=== PATIENT | male | born 1955 | race Caucasian/White ===

== ENCOUNTER 2024-04-26 08:50 | Emergency (ER) | payer OTHER, SELFPAY ==
--- NOTE | ~2024-04-26 | XR_ITS ---
CLINICAL HISTORY: cough 2 view chest x-ray Comparison: None Findings: No focal consolidation. No pleural effusion or pneumothorax. Normal size cardiac silhouette. No acute fracture. IMPRESSION: 1. No acute findings. This document has been electronically signed by: Hilda Bautista MD on 04/26/2024 09:31:30
[2024-04-26 09:00] VITALS: BP 113/78; PULSE 98; RESP 18; TEMP 36.5; O2SAT 96; BMI 29.7
--- NOTE | 2024-04-26 09:00 | ED.GENADULT ---
HPI - General Adult General Chief complaint: General Medical Stated complaint: flu Time Seen by Provider: 04/26/24 12:15 Source: patient and family Mode of arrival: ambulatory Limitations: no limitations History of Present Illness ED Provider: DR. Mahmood HPI narrative: A 68-year-old male history of diabetes presented today for 1 week of generalized weakness, coughing, sore throat, patient was diagnosed on with influenza a positive, patient is complaining of nausea, and vomiting with abdominal discomfort, patient is also complaining of body aches. Related Data Allergies Allergy/AdvReac Type Severity Reaction Status Date / Time No Known Allergies Allergy Verified 04/26/24 09:03 Review of Systems Review of Systems: All other systems are reviewed and are negative Constitutional: Reports as per HPI and Reports no additional constitutional complaints Eyes: Reports as per HPI and Reports no additional eye complaints Reports system reviewed and no additional complaints, except as documented Cardiovascular: Reports as per HPI and Reports no additional cardiovascular complaints Respiratory: Reports as per HPI and Reports no additional respiratory complaints Gastrointestinal: Reports as per HPI and Reports no additional gastrointestinal complaints Genitourinary: Reports no additional female genitourinary complaints Musculoskeletal: Reports no additional musculoskeletal complaints Skin/Breast: Reports system reviewed and no additional complaints, except as docu Psychiatric: Reports no additional psychiatric complaints Endocrine: Reports no additional endocrine complaints Hematologic/Lymphatic: Reports no additional hematologic/lymphatic complaints Allergic/Immunologic: Reports no additional allergic/immunologic complaints Reports system reviewed and no additional complaints, except as documented and Reports Abnormal speech present PMFSH Social History Social History Advance Directives: No Advance Directives Information Provided: No Do you have a plan to hurt others: No Plan Physical Exam ED Vital Signs: Vital Signs - 24 hr 04/26/24 09:00 04/26/24 15:12 04/26/24 16:02 Temperature 97.7 F 98.4 F 98.4 F Pulse Rate 98 88 88 Respiratory Rate 18 16 16 Blood Pressure 113/78 111/65 111/65 Pulse Oximetry 96 96 96 Oxygen Delivery Method Room Air Room Air Room Air BMI result Body Mass Index 29.7 Vital signs have been reviewed and appear to be correct. Blood pressure elevated. Heart rate normal. Respiratory rate normal. Temperature normal. Oxygen saturation normal. Appearance: Alert. Oriented X3. No acute distress. Head: Normal external exam. Normocephalic. Atraumatic. No Rubio signs noted. No raccoon eyes noted Eyes: PERRLA. EOMI. Conjunctiva and sclera normal. Eyelids normal. ENT: TM's Normal. Pharynx normal. Uvula midline. dry mucous membranes. No trismus noted. No drooling noted. No muffled voice noted. Neck: Normal inspection. Neck supple. FROM. No adenopathy. Thyroid Normal. No meningeal signs. No neck mass noted. CVS: Normal heart rate and rhythm. Heart sound normal. No murmurs noted. Pulses normal throughout. Respiratory: No respiratory distress. Painless inspiration. Breath sounds normal. No wheezes/rales/rhonchi noted. Chest nontender. No accessory muscle usage noted or decreased air movement noted. Abdomen: Soft and nontender. Bowel sounds normal in all 4 quadrants. No distention noted. No organomegaly noted. No visible injury noted. Back: No CVA tenderness. Full range of motion noted. Skin: Skin warm and dry. Normal skin color. Normal skin turgor. No rashes/lesions/lacerations noted. Extremities: No lower extremity edema. Extremities exhibit normal range of motion. Extremities nontender. Neuro: Oriented X 3. Cranial nerve exam: II-XII are grossly intact No motor deficit. No sensory deficit. Reflexes normal. Course Course Course Narrative: RME performed by Germaine Hargrove PA-C. Patient is a 68 year old assigned male at presenting to the emergency department with difficulty swallowing secondary to pain and is influenza positive. Patient has nausea and vomiting. Detailed physical exam and review of systems are deferred to the outreach clinician. Labs, imaging, and swabs ordered. Patient placed back in the waiting room pending room availability and results. Medications Administered Discontinued Medications Generic Name Dose Route Start Last Admin Trade Name Freq PRN Reason Stop Dose Admin Al Hydroxide/Mg Hydroxide 30 ml 04/26/24 12:45 04/26/24 12:54 Magnesium Hydrox/Alum Hydrox 30 Ml Oral.Susp PO 04/26/24 12:46 30 ml ONCE ONE Administration Famotidine 20 mg 04/26/24 12:35 04/26/24 12:51 Famotidine/Pf 20 Mg/2 Ml Vial IVPUSH 04/26/24 12:36 20 mg ONCE ONE Administration Sodium Chloride 1,000 mls @ 999 mls/hr 04/26/24 12:34 04/26/24 13:50 Ns IV 04/26/24 13:34 Infused .Q1H1M ONE Infusion Ketorolac Tromethamine 15 mg 04/26/24 12:45 04/26/24 12:51 Ketorolac Tromethamine 15 Mg/Ml Vial IVPUSH 04/26/24 12:46 15 mg ONCE ONE Administration Ondansetron HCl 4 mg 04/26/24 12:35 04/26/24 12:51 Ondansetron Hcl 4 Mg/2 Ml Vial IVPUSH 04/26/24 12:36 4 mg ONCE ONE Administration Medical Decision Making Lab Data 04/26/24 09:11 04/26/24 09:11 Labs: Lab Results 04/26/24 04/26/24 Range/Units 09:11 12:56 WBC 7.1 (4.8-10.8) X10*3/uL RBC 5.93 H (4.60-5.80) X10*6/uL Hgb 17.7 (14.0-18.0) g/dl Hct 49.2 (42.0-52.0) % MCV 83.0 (80.0-98.0) fL MCH 29.8 (27.0-33.0) pg MCHC 36.0 (31.0-36.0) g/dl RDW 13.4 (11.0-16.0) % Plt Count 182 (160-400) X10*3/uL MPV 10.8 (9.4-12.4) fL Immature Gran % (Auto) 1.7 H (0.0-0.4) % Neut % (Auto) 75.5 H (45-73) % Lymph % (Auto) 11.8 L (20-40) % [place] % (Auto) 10.6 (2-11) % Eos % (Auto) 0.1 (0-4) % Baso % (Auto) 0.3 (0-2) % Lymph # (Auto) 0.8 L (1.2-4.9) X10*3/uL [place] # (Auto) 0.8 (0.1-1.2) X10*3/uL Eos # (Auto) 0.0 (0.0-0.4) X10*3/uL Baso # (Auto) 0.0 (0.0-0.2) X10*3/uL Abs Immat Gran (auto) 0.12 H (0.00-0.03) X10*3/uL Absolute Neuts (auto) 5.4 (2.0-8.3) x10*3/uL Absolute Nucleated RBC 0.000 (0.0-0.012) X10*3/uL Nucleated RBC % (auto) 0.0 (0.0-0.2) /100WBC Sodium 131 L (135-145) mmol/L Potassium 4.6 (3.3-5.1) mmol/L Chloride 95 L (96-108) mmol/L Carbon Dioxide 21 L (22-29) mmol/L Anion Gap 20 (12-20) BUN 18 H (9-16) mg/dL Creatinine 1.03 (0.5-1.4) mg/dL Estim Creat Clear Calc 72.9 Estimated GFR > 60 Random Glucose 336 H (60-115) mg/dL Calcium 9.4 (8.4-10.2) mg/dL Magnesium 2.1 (1.6-2.6) mg/dL Total Bilirubin 0.9 (0.0-1.0) mg/dL AST 172 H (5-37) U/L ALT 275 H (0-40) U/L Alkaline Phosphatase 168 H (39-117) U/L Total Protein 8.2 H (6.5-8.0) g/dL Albumin 3.9 (3.5-5.0) g/dL Influenza Type A (PCR) NEGATIVE (Negative) Influenza Type B (PCR) NEGATIVE (Negative) RSV RNA Qual (PCR) NEGATIVE (Negative) SARS-CoV-2 RNA (RT-PCR) NEGATIVE (Negative) S. pyogenes GrpA JOANIE Negative (Negative) Discharge Plan Discharge Clinical Impression: Dehydration, Acute viral syndrome Patient Disposition: Home, Self-Care Instructions: Dehydration (ED), Viral Syndrome (ED) Additional Instructions: Drink plenty of fluids. Take [id number] ibuprofen 200 mg tablet every 6 hours if needed for body ache. Wear face mask at all times, frequent hand wash, self quarantine for 3-4 days. Interventions: ED Discharge Assessment Last Done: 04/26/24 16:02 Discharge Date/Time: 04/26/24 16:02 Print Language: Nigerien
[2024-04-26 09:14] LABS: MANUAL DIFF FLAG NO
[2024-04-26 09:16] LABS: Basophils Percent Auto 0.3 % (0-2); Eosinophils Percent Auto 0.1 % (0-4); Hematocrit 49.2 % (42.0-52.0); Hemoglobin 17.7 g/dl (14.0-18.0); Imm Gran Abs Auto 0.12 X10*3/uL (0.00-0.03); Imm Gran Pct Auto 1.7 % (0.0-0.4); Lymphocytes Absolute Auto 0.8 X10*3/uL (1.2-4.9); Lymphocytes Percent Auto 11.8 % (20-40); Mean Corpuscular Hemoglobin 29.8 pg (27.0-33.0); Mean Platelet Volume 10.8 fL (9.4-12.4); Monocytes Absolute Auto 0.8 X10*3/uL (0.1-1.2); Monocytes Percent Auto 10.6 % (2-11); Neutrophils Absolute Auto 5.4 x10*3/uL (2.0-8.3); Neutrophils Percent Auto 75.5 % (45-73); Platelet Count 182 X10*3/uL (160-400); Red Blood Count 5.93 X10*6/uL (4.60-5.80); Red Cell Distribution Width 13.4 % (11.0-16.0); White Blood Count 7.1 X10*3/uL (4.8-10.8)
[2024-04-26 09:33] LABS: Alanine Aminotransferase 275 U/L (0-40); Albumin Level 3.9 g/dL (3.5-5.0); Alkaline Phosphatase 168 U/L (39-117); Anion Gap 20 (12-20); Aspartate Amino Transferase 172 U/L (5-37); Bilirubin Total 0.9 mg/dL (0.0-1.0); Blood Urea Nitrogen 18 mg/dL (9-16); Calcium 9.4 mg/dL (8.4-10.2); Carbon Dioxide 21 mmol/L (22-29); Chloride 95 mmol/L (96-108); Creatinine Clr Calc Pharmacy 72.9; Estimated Glomerular Filt Rate > 60; Glucose Random 336 mg/dL (60-115); Magnesium 2.1 mg/dL (1.6-2.6); Potassium 4.6 mmol/L (3.3-5.1); Sodium 131 mmol/L (135-145); Total Protein 8.2 g/dL (6.5-8.0)
[2024-04-26 09:55] LABS: Influenza A PCR NEGATIVE (Negative); Influenza B PCR NEGATIVE (Negative); Resp Syncy Virus RNA Qual PCR NEGATIVE (Negative); SARS COV2 PCR INHOUSE NEGATIVE (Negative)
--- NOTE | 2024-04-26 12:39 | ED_ITS ---
HPI - General Adult General Chief complaint: General Medical Stated complaint: flu Time Seen by Provider: 04/26/24 12:15 Source: patient and family Related Data Allergies Allergy/AdvReac Type Severity Reaction Status Date / Time No Known Allergies Allergy Verified 04/26/24 09:03 [facility] Social History Social History Do you have a plan to hurt others: No Plan Physical Exam ED Vital Signs: Vital Signs - 24 hr 04/26/24 09:00 Temperature 97.7 F Pulse Rate 98 Respiratory Rate 18 Blood Pressure 113/78 Pulse Oximetry 96 Oxygen Delivery Method Room Air BMI result Body Mass Index 29.7 Medical Decision Making Lab Data 04/26/24 09:11 04/26/24 09:11 Labs: Lab Results 04/26/24 Range/Units 09:11 WBC 7.1 (4.8-10.8) X10*3/uL RBC 5.93 H (4.60-5.80) X10*6/uL Hgb 17.7 (14.0-18.0) g/dl Hct 49.2 (42.0-52.0) % MCV 83.0 (80.0-98.0) fL MCH 29.8 (27.0-33.0) pg MCHC 36.0 (31.0-36.0) g/dl RDW 13.4 (11.0-16.0) % Plt Count 182 (160-400) X10*3/uL MPV 10.8 (9.4-12.4) fL Immature Gran % (Auto) 1.7 H (0.0-0.4) % Neut % (Auto) 75.5 H (45-73) % Lymph % (Auto) 11.8 L (20-40) % [place] % (Auto) 10.6 (2-11) % Eos % (Auto) 0.1 (0-4) % Baso % (Auto) 0.3 (0-2) % Lymph # (Auto) 0.8 L (1.2-4.9) X10*3/uL [place] # (Auto) 0.8 (0.1-1.2) X10*3/uL Eos # (Auto) 0.0 (0.0-0.4) X10*3/uL Baso # (Auto) 0.0 (0.0-0.2) X10*3/uL Abs Immat Gran (auto) 0.12 H (0.00-0.03) X10*3/uL Absolute Neuts (auto) 5.4 (2.0-8.3) x10*3/uL Absolute Nucleated RBC 0.000 (0.0-0.012) X10*3/uL Nucleated RBC % (auto) 0.0 (0.0-0.2) /100WBC Sodium 131 L (135-145) mmol/L Potassium 4.6 (3.3-5.1) mmol/L Chloride 95 L (96-108) mmol/L Carbon Dioxide 21 L (22-29) mmol/L Anion Gap 20 (12-20) BUN 18 H (9-16) mg/dL Creatinine 1.03 (0.5-1.4) mg/dL Estim Creat Clear Calc 72.9 Estimated GFR > 60 Random Glucose 336 H (60-115) mg/dL Calcium 9.4 (8.4-10.2) mg/dL Magnesium 2.1 (1.6-2.6) mg/dL Total Bilirubin 0.9 (0.0-1.0) mg/dL AST 172 H (5-37) U/L ALT 275 H (0-40) U/L Alkaline Phosphatase 168 H (39-117) U/L Total Protein 8.2 H (6.5-8.0) g/dL Albumin 3.9 (3.5-5.0) g/dL Influenza Type A (PCR) NEGATIVE (Negative) Influenza Type B (PCR) NEGATIVE (Negative) RSV RNA Qual (PCR) NEGATIVE (Negative) SARS-CoV-2 RNA (RT-PCR) NEGATIVE (Negative) Discharge Plan Discharge Print Language: Danish
[2024-04-26] MEDS: 0.9 % Sodium Chloride 1,000 ML 999 ML IV (12:48)
[2024-04-26] MEDS: ondansetron HCL 4 MG/2 ML VIAL IVPUSH (12:51)
[2024-04-26] MEDS: Ketorolac Tromethamine 15 MG/ML VIAL IVPUSH (12:51)
[2024-04-26] MEDS: Famotidine/PF 20 MG/2 ML VIAL IVPUSH (12:51)
[2024-04-26] MEDS: Magnesium Hydrox/Alum Hydrox 30 ML ORAL.SUSP PO (12:54)
[2024-04-26 13:10] LABS: IDNOW Serial# 08D9AD1C; Strep A Nucleic Acid Negative (Negative)
[2024-04-26 15:12] VITALS: BP 111/65; PULSE 88; RESP 16; TEMP 36.9; O2SAT 96
[2024-04-26 16:02] VITALS: BP 111/65; PULSE 88; RESP 16; TEMP 36.9; O2SAT 96
== END 2024-04-26 16:02 | disposition home or self-care (01) ==
PROVIDERS: Physician Assistant Medical; Emergency Provider Emergency Medicine
DX: E86.0 Dehydration (principal); B34.9 Viral infection, unspecified; R05.9 Cough, unspecified; R11.2 Nausea with vomiting, unspecified; Z03.818 Encounter for observation for suspected exposure to other biological agents ruled out; Z79.899 Other long term (current) drug therapy
CPT/HCPCS: 0241U; 71046; 80053; 83735; 85025; 87651; 96361; 96374; 96375; 99284; J1885; J2405

== ENCOUNTER → 2024-04-26 09:01 | Outpatient (BNV) | payer SELFPAY | PROVIDERS: Visit Provider Radiology Diagnostic Radiology | DX: R05.9 Cough, unspecified (principal) | CPT/HCPCS: 71046 ==